=== PATIENT | female | born 1955 | race Caucasian/White ===

== ENCOUNTER 2017-09-09 08:55 | Outpatient (CLI) | payer OTHER ==
--- NOTE | 2017-09-25 09:16 | PFT ---
PATIENT HISTORY: HEIGHT: 65 IN WEIGHT: 152 LBS SMOKER: NEVER HOW LONG: PACKS PER DAY PRODUCTIVE COUGH: LUNG DISEASE: AMIODARONE PHYSICIAN INTERPRETATION FINAL REPORT: FEV1 is normal at 2.41, FVC is normal at 2.88 25-75 is normal. Lung volumes are normal. There is no air trapping. Diffusion is normal. There is no evidence of extrathoracic airway obstruction on flow volume loop. IMPRESSION: Overall, this is a normal study Construction Operations Manager: SANDRA Special Deputy Sheriff: PRINCESS [address]
== END 2017-09-09 08:56 | disposition home or self-care (01) ==
LOC: CP 08:55
PROVIDERS: ATTEND Internal Medicine Cardiovascular Disease
DX: Z51.81 Encounter for therapeutic drug level monitoring (principal); Z79.899 Other long term (current) drug therapy
CPT/HCPCS: 94010; 94727; 94729